=== PATIENT | male | born 1945 | race Caucasian/White ===

== ENCOUNTER 2016-07-25 16:34 | Inpatient (IN) | payer OTHER ==
[~2016-07-25] VITALS: Ht 188 cm; Wt 104.0 kg
[2016-07-25] MEDS ORDERED: METO (17:14)
[2016-07-25] MEDS ORDERED: NIFEDIPINE (17:14)
[2016-07-25 17:16] LABS: BASOPHIL % 0.4 % (0-2); PLATELET COUNT 231 x10^3mcL (130-400); RED CELL DISTRIBUTION WIDTH 13.4 % (11.5-14.5)
[2016-07-25 17:22] LABS: ALBUMIN 3.4 g/dL (3.4-5.0); BILIRUBIN TOTAL 0.26 mg/dL (0.20-1.00); CALCIUM 8.6 mg/dL (8.5-10.1); CARBON DIOXIDE 26.2 mmol/L (21-32); CREATININE SERUM 3.7 mg/dL (0.7-1.3); POTASSIUM SERUM 4.7 mmol/L (3.5-5.1); TOTAL PROTEIN, SERUM 7.4 g/dL (6.4-8.2)
[2016-07-25 20:00] LABS: CHOLESTEROL/HDL RATIO 5.4
[2016-07-25 20:28] LABS: T3 TOTAL 0.97 ng/mL
[2016-07-25 20:29] LABS: FREE T4 0.82 ng/dL (0.76-1.46); FREE THYROXINE INDEX 2.5 ug/dL (1.4-4.5); T4(THYROXINE) 6.3 ug/dL (4.7-13.3)
[2016-07-25 20:51] VITALS: BP 197/87
[2016-07-25] MEDS ORDERED: LOP50 PO (21:21)
[2016-07-25] MEDS ORDERED: HUMULIN N100 U/1 ML SC (21:21)
[2016-07-25] MEDS ORDERED: HUMULIN R100 U/1 M1 SQ (21:21)
[2016-07-25] MEDS ORDERED: PROCARDIA XL90 MG PO (21:21)
[2016-07-25] MEDS ORDERED: NORCO1 TA2 PO (21:22)
[2016-07-26] VITALS (8 sets, daily range): BP systolic 143–196; BP diastolic 72–109
[2016-07-26 04:41] LABS: CALCIUM 8.5 mg/dL (8.5-10.1); CARBON DIOXIDE 24.6 mmol/L (21-32); CREATININE SERUM 3.4 mg/dL (0.7-1.3); MAGNESIUM 2.1 mg/dL (1.8-2.4); PHOSPHOROUS 4.6 mg/dL (2.5-4.9); POTASSIUM SERUM 4.4 mmol/L (3.5-5.1)
[2016-07-26 04:51] LABS: BASOPHIL % 0.5 % (0-2); PLATELET COUNT 212 x10^3mcL (130-400); RED CELL DISTRIBUTION WIDTH 13.3 % (11.5-14.5)
[2016-07-27] VITALS: BP 140/72
[2016-07-27 03:30] VITALS: BP 167/92
[2016-07-27 05:35] LABS: BASOPHIL % 0.3 % (0-2); PLATELET COUNT 212 x10^3mcL (130-400); RED CELL DISTRIBUTION WIDTH 13.8 % (11.5-14.5)
[2016-07-27 05:45] LABS: CALCIUM 8.6 mg/dL (8.5-10.1); CARBON DIOXIDE 23.1 mmol/L (21-32); CREATININE SERUM 3.2 mg/dL (0.7-1.3); POTASSIUM SERUM 4.5 mmol/L (3.5-5.1)
[2016-07-27 07:45] VITALS: BP 160/76
[2016-07-27 09:02] VITALS: Ht 188 cm; Wt 104.0 kg
[2016-07-27 12:00] VITALS: BP 184/104
[2016-07-27 19:40] VITALS: BP 156/78
[2016-07-28] VITALS (7 sets, daily range): BP systolic 129–165; BP diastolic 71–90
[2016-07-28 05:36] LABS: CALCIUM 8.5 mg/dL (8.5-10.1); CARBON DIOXIDE 20.9 mmol/L (21-32); CREATININE SERUM 3.1 mg/dL (0.7-1.3); POTASSIUM SERUM 4.4 mmol/L (3.5-5.1)
[2016-07-28 05:45] LABS: BASOPHIL % 0.3 % (0-2); PLATELET COUNT 218 x10^3mcL (130-400); RED CELL DISTRIBUTION WIDTH 13.3 % (11.5-14.5)
[2016-07-29 05:33] VITALS: BP 165/85
[2016-07-29 09:17] VITALS: BP 113/56
[2016-07-29] MEDS ORDERED: KEF500 PO (10:16)
[2016-07-29] MEDS ORDERED: TEN50 PO (10:17)
[2016-07-29] MEDS ORDERED: ADALAT CC90 MG PO (10:20)
[2016-07-29] MEDS ORDERED: THERA TABS1 TAB PO (10:20)
[2016-07-29] MEDS ORDERED: LAC PO (10:35)
[2016-07-29 13:03] VITALS: BP 113/56
== END 2016-07-29 13:30 | disposition home or self-care (01) | DRG 228 ==
LOC: ED 16:34 → IC 19:12 → DU 19:12 → IC 07-26 10:31 → DU 07-28 10:58
PROVIDERS: Family Medicine; Internal Medicine Interventional Cardiology; ADMIT Family Medicine
PROC: 02HK3NZ Insertion of Intracardiac Pacemaker into Right Ventricle, Percutaneous Approach (ICD-10-PCS; 2016-07-26)
PROC: 02H63JZ Insertion of Pacemaker Lead into Right Atrium, Percutaneous Approach (ICD-10-PCS; 2016-07-27)
PROC: 02HK3JZ Insertion of Pacemaker Lead into Right Ventricle, Percutaneous Approach (ICD-10-PCS; 2016-07-27)
PROC: 0JH606Z Insertion of Pacemaker, Dual Chamber into Chest Subcutaneous Tissue and Fascia, Open Approach (ICD-10-PCS; principal; 2016-07-27 13:30)
DX: R00.1 Bradycardia, unspecified (principal); N17.0 Acute kidney failure with tubular necrosis; D68.69 Other thrombophilia; N18.4 Chronic kidney disease, stage 4 (severe); I44.1 Atrioventricular block, second degree; E78.5 Hyperlipidemia, unspecified; I12.9 Hypertensive chronic kidney disease with stage 1 through stage 4 chronic kidney disease, or unspecified chronic kidney disease; I16.0 Hypertensive urgency; E11.65 Type 2 diabetes mellitus with hyperglycemia; E11.42 Type 2 diabetes mellitus with diabetic polyneuropathy; E11.610 Type 2 diabetes mellitus with diabetic neuropathic arthropathy; E11.621 Type 2 diabetes mellitus with foot ulcer; B35.1 Tinea unguium; D64.9 Anemia, unspecified; Z89.422 Acquired absence of other left toe(s); Z89.421 Acquired absence of other right toe(s); Z68.29 Body mass index [BMI] 29.0-29.9, adult; Z79.4 Long term (current) use of insulin
CPT/HCPCS: 33208; 80307; 82962; 83880; 84439; 85378; C1769; C1785; G0480; J0360; J0690; J1644; J1815; J2001; J2250; J2405; J3010; J3370; J3490; J7030; J7050; Q0092; Q9967

== ENCOUNTER 2016-12-05 12:20 | Inpatient (IN) | payer OTHER ==
[~2016-12-05] VITALS: Ht 188 cm; Wt 109.0 kg
[~2016-12-05 12:20] MED LIST: ADALAT CC90 MG PO; HUMULIN N100 U/1 ML SC; HUMULIN R100 U/1 M1 SQ; KEF500 PO; LAC PO; LOP50 PO; METO; NIFEDIPINE; NORCO1 TA2 PO; PROCARDIA XL90 MG PO; TEN50 PO; THERA TABS1 TAB PO
[2016-12-05 13:59] LABS: BASOPHIL % 0.3 % (0-2); PLATELET COUNT 250 x10^3mcL (130-400); RED CELL DISTRIBUTION WIDTH 14.3 % (11.5-14.5)
[2016-12-05 14:26] LABS: BILIRUBIN TOTAL 0.3 mg/dL (0.20-1.00); CALCIUM 9.1 mg/dL (8.5-10.1); CARBON DIOXIDE 19.7 mmol/L (21-32); T4(THYROXINE) 6.3 ug/dL (4.7-13.3)
[2016-12-05 14:30] LABS: ALBUMIN 2.8 g/dL (3.4-5.0)
[2016-12-05 14:31] LABS: POTASSIUM SERUM 5.7 mmol/L (3.5-5.1)
[2016-12-05 15:50] LABS: microscopic required? YES; urine erythrocyte TRACE (NEGATIVE)
[2016-12-05 16:27] LABS: MAGNESIUM 2.4 mg/dL (1.8-2.4); PHOSPHOROUS 4.7 mg/dL (2.5-4.9)
[2016-12-05 17:05] VITALS: BP 166/65
[2016-12-05 17:07] LABS: AMPHETAMINE QUAL UR NONE DETECTED (NEG <=1000)
[2016-12-05 20:51] VITALS: BP 170/67
[2016-12-05 22:21] VITALS: BP 170/67
[2016-12-06 05:56] VITALS: BP 153/59
[2016-12-06 06:54] LABS: BASOPHIL % 0.2 % (0-2); PLATELET COUNT 215 x10^3mcL (130-400)
[2016-12-06 07:14] LABS: CALCIUM 8.8 mg/dL (8.5-10.1); CARBON DIOXIDE 20.5 mmol/L (21-32); MAGNESIUM 2.4 mg/dL (1.8-2.4); PHOSPHOROUS 5.3 mg/dL (2.5-4.9); POTASSIUM SERUM 5.1 mmol/L (3.5-5.1)
[2016-12-06 07:26] LABS: CREATININE SERUM 4.7 mg/dL (0.7-1.3)
[2016-12-06 08:57] VITALS: BP 159/66
[2016-12-06 13:57] VITALS: BP 160/75
[2016-12-06 14:43] LABS: CALCIUM 8.8 mg/dL (8.5-10.1); CARBON DIOXIDE 20.1 mmol/L (21-32); POTASSIUM SERUM 5.5 mmol/L (3.5-5.1)
[2016-12-06 14:54] LABS: CREATININE SERUM 4.7 mg/dL (0.7-1.3)
[2016-12-06 17:47] VITALS: BP 162/79
[2016-12-06 22:30] VITALS: BP 158/65
[2016-12-07 04:52] LABS: BASOPHIL % 0.3 % (0-2); PLATELET COUNT 279 x10^3mcL (130-400)
[2016-12-07 05:00] LABS: CALCIUM 8.8 mg/dL (8.5-10.1); CARBON DIOXIDE 21.5 mmol/L (21-32); PHOSPHOROUS 5.7 mg/dL (2.5-4.9); POTASSIUM SERUM 4.7 mmol/L (3.5-5.1)
[2016-12-07 05:22] LABS: CREATININE SERUM 4.6 mg/dL (0.7-1.3)
[2016-12-07 06:06] VITALS: BP 159/65
[2016-12-07 09:06] VITALS: BP 143/68
[2016-12-07] MEDS ORDERED: L40I PO (10:04)
[2016-12-07 12:01] VITALS: BP 158/71
[2016-12-07 16:33] VITALS: BP 149/74
[2016-12-07 21:19] VITALS: BP 146/61
[2016-12-08 06:00] VITALS: BP 144/69
[2016-12-08 06:10] LABS: BASOPHIL % 0.4 % (0-2); PLATELET COUNT 289 x10^3mcL (130-400)
[2016-12-08 06:15] LABS: CALCIUM 9.1 mg/dL (8.5-10.1); CARBON DIOXIDE 22.9 mmol/L (21-32); PHOSPHOROUS 5.9 mg/dL (2.5-4.9); POTASSIUM SERUM 4.4 mmol/L (3.5-5.1)
[2016-12-08 06:25] LABS: CREATININE SERUM 4.4 mg/dL (0.7-1.3)
[2016-12-08 08:46] VITALS: BP 144/69
[2016-12-08 09:30] VITALS: BP 159/70
== END 2016-12-08 10:45 | disposition home or self-care (01) | DRG 264 ==
LOC: ED 12:20 → DU 15:49
PROVIDERS: Emergency Medicine; Family Medicine; Internal Medicine Nephrology; ADMIT Family Medicine
PROC: 0HBNXZZ Excision of Left Foot Skin, External Approach (ICD-10-PCS; principal; 2016-12-06)
PROC: 0JBQ0ZZ Excision of Right Foot Subcutaneous Tissue and Fascia, Open Approach (ICD-10-PCS; 2016-12-06)
DX: I50.43 Acute on chronic combined systolic (congestive) and diastolic (congestive) heart failure (principal); N17.0 Acute kidney failure with tubular necrosis; E43 Unspecified severe protein-calorie malnutrition; E87.1 Hypo-osmolality and hyponatremia; E11.65 Type 2 diabetes mellitus with hyperglycemia; E11.621 Type 2 diabetes mellitus with foot ulcer; L97.521 Non-pressure chronic ulcer of other part of left foot limited to breakdown of skin; L97.519 Non-pressure chronic ulcer of other part of right foot with unspecified severity; E11.51 Type 2 diabetes mellitus with diabetic peripheral angiopathy without gangrene; E11.42 Type 2 diabetes mellitus with diabetic polyneuropathy; R06.09 Other forms of dyspnea; I10 Essential (primary) hypertension; I25.2 Old myocardial infarction; Z86.74 Personal history of sudden cardiac arrest; Z95.0 Presence of cardiac pacemaker; Z89.411 Acquired absence of right great toe; Z89.421 Acquired absence of other right toe(s); Z89.422 Acquired absence of other left toe(s); Z79.4 Long term (current) use of insulin
CPT/HCPCS: 36600; 78598; 82962; 83880; 85378; A9540; J1644; J1815; J1940; J7030; Q0092

== ENCOUNTER 2016-12-16 13:00 | Inpatient (IN) | payer OTHER ==
[~2016-12-16] VITALS: Ht 188 cm; Wt 98.4 kg
[~2016-12-16 13:00] MED LIST changes: +L40I PO
[2016-12-16 13:59] LABS: BASOPHIL % 0.2 % (0-2); PLATELET COUNT 395 x10^3mcL (130-400); RED CELL DISTRIBUTION WIDTH 13.6 % (11.5-14.5)
[2016-12-16 14:15] LABS: CALCIUM 9.5 mg/dL (8.5-10.1); CARBON DIOXIDE 25.6 mmol/L (21-32)
[2016-12-16 14:22] LABS: CREATININE SERUM 4.1 mg/dL (0.7-1.3)
[2016-12-16 16:39] LABS: T3 TOTAL 0.76 ng/mL
[2016-12-16 16:40] VITALS: BP 169/95
[2016-12-16 16:46] VITALS: Ht 188 cm; Wt 98.4 kg
[2016-12-16 17:04] LABS: CHOLESTEROL/HDL RATIO 3.8; MAGNESIUM 2.3 mg/dL (1.8-2.4); PHOSPHOROUS 3.8 mg/dL (2.5-4.9)
[2016-12-16 17:13] LABS: FREE T4 1.25 ng/dL (0.76-1.46); FREE THYROXINE INDEX 2.4 ug/dL (1.4-4.5); T4(THYROXINE) 5.9 ug/dL (4.7-13.3)
[2016-12-16 17:53] VITALS: BP 148/82
[2016-12-16 21:14] VITALS: BP 147/81
[2016-12-16 22:05] LABS: RED BLOOD CELLS 2.89 M/mm3 (4.52-5.90)
[2016-12-16 22:41] LABS: IRON 27 ug/dL (65-170); TOTAL IRON BINDING CAPACITY 170 ug/dL (250-450)
[2016-12-17 00:24] LABS: microscopic required? YES; urine erythrocyte TRACE (NEGATIVE)
[2016-12-17 00:32] LABS: AMPHETAMINE QUAL UR NONE DETECTED (NEG <=1000)
[2016-12-17 05:38] VITALS: BP 143/86
[2016-12-17 06:29] LABS: BASOPHIL % 0.3 % (0-2); PLATELET COUNT 382 x10^3mcL (130-400); RED CELL DISTRIBUTION WIDTH 13.7 % (11.5-14.5)
[2016-12-17 06:32] LABS: CALCIUM 9.7 mg/dL (8.5-10.1); MAGNESIUM 2.2 mg/dL (1.8-2.4); PHOSPHOROUS 4.7 mg/dL (2.5-4.9); POTASSIUM SERUM 5.3 mmol/L (3.5-5.1)
[2016-12-17 06:49] LABS: CREATININE SERUM 4.2 mg/dL (0.7-1.3)
[2016-12-17 08:10] VITALS: BP 150/82
[2016-12-17 12:33] VITALS: BP 150/77
[2016-12-17 13:30] VITALS: BP 145/76
[2016-12-17 16:23] VITALS: BP 123/64
[2016-12-17 20:52] VITALS: BP 132/71
[2016-12-18 06:22] LABS: BASOPHIL % 0.6 % (0-2); PLATELET COUNT 388 x10^3mcL (130-400); RED CELL DISTRIBUTION WIDTH 14.1 % (11.5-14.5)
[2016-12-18 06:33] LABS: CALCIUM 9.2 mg/dL (8.5-10.1); MAGNESIUM 2.2 mg/dL (1.8-2.4); PHOSPHOROUS 5.5 mg/dL (2.5-4.9); POTASSIUM SERUM 5.4 mmol/L (3.5-5.1)
[2016-12-18 06:38] LABS: CREATININE SERUM 4.5 mg/dL (0.7-1.3)
[2016-12-18 10:33] VITALS: BP 135/74
[2016-12-18 12:20] LABS: CALCIUM 9.1 mg/dL (8.5-10.1); CARBON DIOXIDE 27.3 mmol/L (21-32)
[2016-12-18 12:23] LABS: CREATININE SERUM 4.4 mg/dL (0.7-1.3); POTASSIUM SERUM 5.8 mmol/L (3.5-5.1)
[2016-12-18 13:16] VITALS: BP 134/68
[2016-12-18 21:46] VITALS: BP 142/76
[2016-12-19 06:23] VITALS: BP 135/73
[2016-12-19 07:07] LABS: BASOPHIL % 0.6 % (0-2); PLATELET COUNT 354 x10^3mcL (130-400); RED CELL DISTRIBUTION WIDTH 13.7 % (11.5-14.5)
[2016-12-19 07:33] LABS: CALCIUM 8.9 mg/dL (8.5-10.1); CARBON DIOXIDE 26.5 mmol/L (21-32); PHOSPHOROUS 5.6 mg/dL (2.5-4.9); POTASSIUM SERUM 4.4 mmol/L (3.5-5.1)
[2016-12-19 07:36] LABS: CREATININE SERUM 4.5 mg/dL (0.7-1.3)
[2016-12-19 09:22] VITALS: BP 131/68
[2016-12-19 16:46] VITALS: BP 138/74
[2016-12-19 21:42] VITALS: BP 141/67
[2016-12-20 05:54] VITALS: BP 130/77
[2016-12-20 06:23] LABS: BASOPHIL % 0.6 % (0-2); PLATELET COUNT 388 x10^3mcL (130-400); RED CELL DISTRIBUTION WIDTH 13.7 % (11.5-14.5)
[2016-12-20 06:42] LABS: CALCIUM 9.1 mg/dL (8.5-10.1); CARBON DIOXIDE 29.2 mmol/L (21-32); PHOSPHOROUS 6.2 mg/dL (2.5-4.9); POTASSIUM SERUM 4.7 mmol/L (3.5-5.1)
[2016-12-20 06:50] LABS: CREATININE SERUM 4.6 mg/dL (0.7-1.3)
[2016-12-20 09:38] VITALS: BP 142/78
[2016-12-20 14:06] VITALS: BP 144/70
[2016-12-20 17:13] VITALS: BP 130/72
[2016-12-20 22:05] VITALS: BP 133/73
[2016-12-21] VITALS (8 sets, daily range): BP systolic 99–153; BP diastolic 66–81
[2016-12-21 06:13] LABS: BASOPHIL % 0.4 % (0-2); RED CELL DISTRIBUTION WIDTH 13.9 % (11.5-14.5)
[2016-12-21 06:40] LABS: PLATELET COUNT 411 x10^3mcL (130-400)
[2016-12-21 06:42] LABS: CALCIUM 9.2 mg/dL (8.5-10.1); CARBON DIOXIDE 27.9 mmol/L (21-32); MAGNESIUM 1.9 mg/dL (1.8-2.4); POTASSIUM SERUM 3.6 mmol/L (3.5-5.1)
[2016-12-21 06:49] LABS: CREATININE SERUM 4.5 mg/dL (0.7-1.3)
[2016-12-22 05:50] VITALS: BP 126/68
[2016-12-22 06:11] LABS: BASOPHIL % 0.6 % (0-2); PLATELET COUNT 397 x10^3mcL (130-400)
[2016-12-22 06:45] LABS: CALCIUM 8.9 mg/dL (8.5-10.1); CARBON DIOXIDE 30.3 mmol/L (21-32); CREATININE SERUM 3.3 mg/dL (0.7-1.3); MAGNESIUM 1.8 mg/dL (1.8-2.4); PHOSPHOROUS 4.7 mg/dL (2.5-4.9); POTASSIUM SERUM 4.1 mmol/L (3.5-5.1)
[2016-12-22 09:58] VITALS: BP 137/74
[2016-12-22 14:39] VITALS: BP 129/71
[2016-12-22 15:06] LABS: RAPID PLASMA REAGIN Non Reactive (Non Reactive)
[2016-12-22 21:17] VITALS: BP 145/79
[2016-12-23 05:39] VITALS: BP 145/84
[2016-12-23 06:32] LABS: BASOPHIL % 0.6 % (0-2); PLATELET COUNT 366 x10^3mcL (130-400); RED CELL DISTRIBUTION WIDTH 13.6 % (11.5-14.5)
[2016-12-23 06:45] LABS: CALCIUM 9.1 mg/dL (8.5-10.1); CARBON DIOXIDE 28.4 mmol/L (21-32); CREATININE SERUM 3.9 mg/dL (0.7-1.3); PHOSPHOROUS 4.9 mg/dL (2.5-4.9); POTASSIUM SERUM 4.2 mmol/L (3.5-5.1)
[2016-12-23 09:02] VITALS: BP 134/50
[2016-12-23] MEDS ORDERED: METOPROLOL TART25 M1 PO (13:24)
[2016-12-23 13:36] VITALS: BP 134/50
[2016-12-23 13:44] VITALS: BP 138/75
[2016-12-23] MEDS ORDERED: LASIX40 MG PO (14:14)
== END 2016-12-23 15:16 | disposition home or self-care (01) | DRG 264 ==
LOC: ED 13:00 → DU 14:54
PROVIDERS: Emergency Medicine; Family Medicine Sports Medicine; Internal Medicine; ADMIT Family Medicine
PROC: 0JBR0ZZ Excision of Left Foot Subcutaneous Tissue and Fascia, Open Approach (ICD-10-PCS; principal; 2016-12-16)
PROC: 0JBQ0ZZ Excision of Right Foot Subcutaneous Tissue and Fascia, Open Approach (ICD-10-PCS; 2016-12-16)
DX: I13.0 Hypertensive heart and chronic kidney disease with heart failure and stage 1 through stage 4 chronic kidney disease, or unspecified chronic kidney disease (principal); I50.43 Acute on chronic combined systolic (congestive) and diastolic (congestive) heart failure; N17.0 Acute kidney failure with tubular necrosis; J96.00 Acute respiratory failure, unspecified whether with hypoxia or hypercapnia; E87.1 Hypo-osmolality and hyponatremia; N18.4 Chronic kidney disease, stage 4 (severe); D68.69 Other thrombophilia; L97.421 Non-pressure chronic ulcer of left heel and midfoot limited to breakdown of skin; J98.11 Atelectasis; I24.8 Other forms of acute ischemic heart disease; R65.10 Systemic inflammatory response syndrome (SIRS) of non-infectious origin without acute organ dysfunction; E11.51 Type 2 diabetes mellitus with diabetic peripheral angiopathy without gangrene; E11.65 Type 2 diabetes mellitus with hyperglycemia; E11.621 Type 2 diabetes mellitus with foot ulcer; E11.610 Type 2 diabetes mellitus with diabetic neuropathic arthropathy; E11.42 Type 2 diabetes mellitus with diabetic polyneuropathy; Z95.0 Presence of cardiac pacemaker; E87.5 Hyperkalemia; Z79.4 Long term (current) use of insulin; Z68.30 Body mass index [BMI] 30.0-30.9, adult; Z85.820 Personal history of malignant melanoma of skin; D63.8 Anemia in other chronic diseases classified elsewhere
CPT/HCPCS: 82962; 83880; 84439; 86580; 94150; A4301; J0690; J0696; J1644; J1815; J1940; J2001; J2250; J3010; J3490; J7030; J7620; Q0092